=== PATIENT | female | born 1960 | race American Indian/Alaskan Native ===

== ENCOUNTER 2017-01-17 09:29 | Inpatient (IN) | payer OTHER ==
[2017-01-17 10:38] LABS: Anion Gap 18 mmol/L; Blood Urea Nitrogen 22 mg/dL (7-17); Carbon Dioxide 23 mmol/L (22-30); Chloride 101.5 mmol/L (98-107); Glucose 99 mg/dL (65-100); Potassium 4.3 mmol/L (3.6-5.0); Sodium 138 mmol/L (137-145)
[2017-01-17 10:45] LABS: Basophils % (Auto) 0.4 % (0.0-1.8); Eosinophils % (Auto) 2.4 % (0.0-4.3); Hematocrit 34.5 % (30.3-42.9); Hemoglobin 11.2 gm/dl (10.1-14.3); Mean Corpuscular HGB Conc 32 % (30-34); Mean Corpuscular Hemoglobin 28 pg (28-32); Mean Corpuscular Volume 87 fl (79-97); Platelet Count 297 K/mm3 (140-440); Red Blood Count 3.99 M/mm3 (3.65-5.03); Red Cell Distribution Width 14.6 % (13.2-15.2); White Blood Count 7.5 K/mm3 (4.5-11.0)
[2017-01-17] MEDS ORDERED: NACL 0.9% 1000 ML 1,000 ML IV ONE (22:11)
[2017-01-17] MEDS ORDERED: ZOFRAN IV ONE (22:11)
[2017-01-17] MEDS ORDERED: MORPHINE IV ONE (22:11)
[2017-01-17] MEDS ORDERED: PEPCID IV ONE (22:11)
[2017-01-17] MEDS ORDERED: ALUM-MAG HYDROX-SIMETH 200-200-20MG/5ML PO ONE (22:11)
--- NOTE | 2017-01-17 22:14 | Emergency Department Report ---
ED General Adult HPI - General Chief complaint: Chest Pain Stated complaint: RT SIDE CHEST PAIN Time Seen by Provider: 01/17/17 22:04 Source: patient, RN notes reviewed Mode of arrival: Wheelchair Limitations: No Limitations - History of Present Illness Initial comments: This is a 56-year-old female. She is previously unknown to me. Her primary care doctor is Dr. Adrian. Past medical history includes hypertension, obesity, prediabetes. The patient presents to the ER with right upper quadrant, epigastric, and substernal chest discomfort. It has been present for over 24 hours. The pain is described as burning in nature, radiates up to her throat. No shortness of breath, no vomiting. No leg pain. No leg swelling. No recent trips greater than 4 hours. No recent hospital admissions. The pain does not radiate to the back, arms or neck. No recent cardiac stress test. No cocaine use. No family history of cardiac disease that she is aware of. -: Gradual Location: chest, abdomen Severity scale (0 -10): 10 Quality: burning, aching Consistency: constant Improves with: rest Worsens with: movement Associated Symptoms: chest pain, loss of appetite - Related Data Home Medications Medication Instructions Recorded Confirmed Last Taken Aspirin [Aspirin BABY CHEW TAB] 81 mg PO QDAY 01/17/17 01/17/17 Unknown Atenolol [Tenormin] 25 mg PO DAILY 01/17/17 01/17/17 Unknown Gabapentin [Neurontin] 300 mg PO QHS 01/17/17 01/17/17 Unknown Hydroxyzine HCl 10 mg PO DAILY 01/17/17 01/17/17 Unknown Losartan [Cozaar] 100 mg PO QDAY 01/17/17 01/17/17 Unknown Pantoprazole [Protonix] 40 mg PO QDAY 01/17/17 01/17/17 Unknown Sertraline [Zoloft] 25 mg PO QDAY 01/17/17 01/17/17 Unknown amLODIPine [Norvasc] 10 mg PO DAILY 01/17/17 01/17/17 Unknown Allergies Allergy/AdvReac Type Severity Reaction Status Date / Time contrast dye Allergy Swelling Uncoded 01/17/17 09:44 ED Review of Systems ROS: Stated complaint: RT SIDE CHEST PAIN Other details as noted in HPI Constitutional: denies: diaphoresis Eyes: denies: vision change ENT: denies: epistaxis Respiratory: denies: cough Cardiovascular: chest pain Gastrointestinal: abdominal pain Genitourinary: denies: dysuria Musculoskeletal: denies: back pain Skin: denies: lesions Neurological: weakness. denies: headache Psychiatric: anxiety ED Past Medical Hx - Past Medical History Previous Medical History?: Yes Hx Hypertension: Yes Hx Diabetes: Yes (pre dm) Hx GERD: Yes - Surgical History Past Surgical History?: Yes Additional Surgical History: hysterectomy. x 2 - Social History Smoking Status: Never Smoker Substance Use Type: None - Medications Home Medications: Home Medications Medication Instructions Recorded Confirmed Last Taken Type Aspirin [Aspirin BABY CHEW TAB] 81 mg PO QDAY 01/17/17 01/17/17 Unknown History Atenolol [Tenormin] 25 mg PO DAILY 01/17/17 01/17/17 Unknown History Gabapentin [Neurontin] 300 mg PO QHS 01/17/17 01/17/17 Unknown History Hydroxyzine HCl 10 mg PO DAILY 01/17/17 01/17/17 Unknown History Losartan [Cozaar] 100 mg PO QDAY 01/17/17 01/17/17 Unknown History Pantoprazole [Protonix] 40 mg PO QDAY 01/17/17 01/17/17 Unknown History Sertraline [Zoloft] 25 mg PO QDAY 01/17/17 01/17/17 Unknown History amLODIPine [Norvasc] 10 mg PO DAILY 01/17/17 01/17/17 Unknown History ED Physical Exam - General Limitations: No Limitations General appearance: in distress, obese - Head Head exam: Present: atraumatic, normocephalic - Eye Eye exam: Present: normal appearance, EOMI. Absent: nystagmus - ENT ENT exam: Present: normal exam, normal orophraynx, mucous membranes moist, normal external ear exam - Neck Neck exam: Present: normal inspection, full ROM. Absent: tenderness, meningismus - Respiratory Respiratory exam: Present: normal lung sounds bilaterally, chest wall tenderness (there is reproducible chest wall tenderness. There is no breast tenderness. The breast exam is unremarkable. During the breast examination, I am escorted by ER nurse Avis Ann). Absent: respiratory distress, wheezes, rales, rhonchi, stridor - Cardiovascular Cardiovascular Exam: Present: regular rate, normal rhythm. Absent: systolic murmur, diastolic murmur, rubs, gallop - GI/Abdominal GI/Abdominal exam: Present: soft, tenderness, normal bowel sounds, other (there is epigastric and right upper quadrant tenderness. There is negative Dozier sign.). Absent: distended, guarding, rebound, rigid, pulsatile mass - Extremities Exam Extremities exam: Present: normal inspection, full ROM, normal capillary refill. Absent: tenderness, pedal edema, joint swelling, calf tenderness - Back Exam Back exam: Present: normal inspection, full ROM. Absent: tenderness, CVA tenderness (R), CVA tenderness (L), muscle spasm, paraspinal tenderness, vertebral tenderness - Neurological Exam Neurological exam: Present: alert, oriented X3, other (Extraocular movements intact. Tongue midline. No facial droop. Facial sensation intact to light touch in the V1, V2, V3 distribution bilaterally. 5 and 5 strength in 4 extremities.. Sensation is intact to light touch in 4 extremities.). Absent: motor sensory deficit - Psychiatric Psychiatric exam: Present: normal affect, normal mood - Skin Skin exam: Present: warm, dry, intact, normal color. Absent: rash ED Course Vital Signs 01/17/17 01/17/17 01/17/17 09:44 19:16 22:19 Temperature 97.5 F L 97.7 F 97.8 F Pulse Rate 56 L 69 61 Respiratory 18 18 20 Rate Blood Pressure 155/103 165/95 Blood Pressure 154/87 [Left] O2 Sat by Pulse 100 100 98 Oximetry 01/17/17 01/17/17 01/17/17 22:37 22:40 23:45 Temperature Pulse Rate Respiratory 20 20 20 Rate Blood Pressure Blood Pressure [Left] O2 Sat by Pulse 98 Oximetry 01/18/17 01/18/17 01:29 02:00 Temperature 98.0 F Pulse Rate 65 Respiratory 20 20 Rate Blood Pressure Blood Pressure 146/85 [Left] O2 Sat by Pulse 99 Oximetry - Reevaluation(s) Reevaluation #1: 01/17/17 22:33 Differential diagnosis: GERD, gastritis, costochondritis, biliary colic, reflux , pneumonia, acute coronary syndrome, pancreatitis assessment and plan: 56-year-old female with reproducible chest wall tenderness , epigastric and right upper quadrant tenderness. Costochondritis versus biliary disease most likely. Troponin is negative 3, EKG morphologically unremarkable, per patient's clinical history seems to be low risk by heart score. Patient will be treated symptomatically, x-ray of the chest is ordered, 1 quadrant ultrasound is ordered, additional laboratory studies are ordered. Pain has been present for over 24 hours. Multiple troponins have been negative. Reevaluation #2: 01/18/17 00:37 patient still having pain is buggy ladle tender in the right upper quadrant. Required multiple doses of narcotic pain medicine. Right upper quadrant ultrasound does not conclusively exclude cholecystitis, nonspecific findings noted, including small collection of sludge or noncalcified gallstones , with a minimally thickened gallbladder wall. Given persistent pain, tenderness, patient is admitted to Dr. Schaffer's service for further evaluation and management. ED Medical Decision Making - Lab Data Result diagrams: 01/19/17 07:14 01/19/17 07:14 Vital Signs 01/17/17 01/17/17 01/17/17 09:44 19:16 22:19 Temperature 97.5 F L 97.7 F 97.8 F Pulse Rate 56 L 69 61 Respiratory 18 18 20 Rate Blood Pressure 155/103 165/95 Blood Pressure 154/87 [Left] O2 Sat by Pulse 100 100 98 Oximetry Lab Results 01/17/17 01/17/17 01/17/17 Range/Units 10:03 10:03 13:00 WBC 7.5 (4.5-11.0) K/mm3 RBC 3.99 (3.65-5.03) M/mm3 Hgb 11.2 (10.1-14.3) gm/dl Hct 34.5 (30.3-42.9) % MCV 87 (79-97) fl MCH 28 (28-32) pg MCHC 32 (30-34) % RDW 14.6 (13.2-15.2) % Plt Count 297 (140-440) K/mm3 Lymph % (Auto) 20.3 (13.4-35.0) % [place] % (Auto) 8.5 H (0.0-7.3) % Eos % (Auto) 2.4 (0.0-4.3) % Baso % (Auto) 0.4 (0.0-1.8) % Lymph # 1.5 (1.2-5.4) K/mm3 [place] # 0.6 (0.0-0.8) K/mm3 Eos # 0.2 (0.0-0.4) K/mm3 Baso # 0.0 (0.0-0.1) K/mm3 Seg Neutrophils % 68.4 (40.0-70.0) % Seg Neutrophils # 5.1 (1.8-7.7) K/mm3 Sodium 138 (137-145) mmol/L Potassium 4.3 (3.6-5.0) mmol/L Chloride 101.5 (98-107) mmol/L Carbon Dioxide 23 (22-30) mmol/L Anion Gap 18 mmol/L BUN 22 H (7-17) mg/dL Creatinine 1.0 (0.7-1.2) mg/dL Estimated GFR > 60 ml/min BUN/Creatinine Ratio 22.00 % Glucose 99 (65-100) mg/dL Calcium 9.0 (8.4-10.2) mg/dL Troponin T < 0.010 < 0.010 (0.00-0.029) ng/mL 01/17/17 Range/Units 16:07 WBC (4.5-11.0) K/mm3 RBC (3.65-5.03) M/mm3 Hgb (10.1-14.3) gm/dl Hct (30.3-42.9) % MCV (79-97) fl MCH (28-32) pg MCHC (30-34) % RDW (13.2-15.2) % Plt Count (140-440) K/mm3 Lymph % (Auto) (13.4-35.0) % [place] % (Auto) (0.0-7.3) % Eos % (Auto) (0.0-4.3) % Baso % (Auto) (0.0-1.8) % Lymph # (1.2-5.4) K/mm3 [place] # (0.0-0.8) K/mm3 Eos # (0.0-0.4) K/mm3 Baso # (0.0-0.1) K/mm3 Seg Neutrophils % (40.0-70.0) % Seg Neutrophils # (1.8-7.7) K/mm3 Sodium (137-145) mmol/L Potassium (3.6-5.0) mmol/L Chloride (98-107) mmol/L Carbon Dioxide (22-30) mmol/L Anion Gap mmol/L BUN (7-17) mg/dL Creatinine (0.7-1.2) mg/dL Estimated GFR ml/min BUN/Creatinine Ratio % Glucose (65-100) mg/dL Calcium (8.4-10.2) mg/dL Troponin T < 0.010 (0.00-0.029) ng/mL - EKG Data -: EKG Interpreted by Me EKG shows normal: sinus rhythm, axis, intervals, QRS complexes Rate: normal - EKG Data When compared to previous EKG there are: previous EKG unavailable 01/17/17 23:02 EKG #2 demonstrates normal sinus, 63 bpm, normal intervals, normal axis, normal left consistent with STEMI. - Radiology Data Radiology results: image reviewed interpreted by me: X-ray of the chest is negative for acute disease. Critical care attestation.: If time is entered above; I have spent that time in minutes in the direct care of this critically ill patient, excluding procedure time. ED Disposition Clinical Impression: Abdominal pain Disposition: OP ADMITTED IP TO THIS HOSP Is pt being admited?: Yes Condition: Good
[2017-01-17 23:10] LABS: INR 1.04 (0.87-1.13)
--- NOTE | 2017-01-18 00:10 | Ultrasound Report ---
FINAL REPORT PROCEDURE: Right upper quadrant ultrasound TECHNIQUE: Real-time sonography was performed of the right upper quadrant with image documentation. CPT 33941 HISTORY: ruq pain COMPARISON: No prior studies are available for comparison. FINDINGS: Small mildly echogenic foci seen within the gallbladder.. This may represent a small collection a sludge or noncalcified gallstone. Gallbladder wall mildly prominent measuring up to 3.6 millimeters. Gallbladder wall otherwise unremarkable. No fluid is seen in the gallbladder fossa. Liver echogenicity mildly increased suggesting fatty infiltration. No discrete liver masses are identified. The pancreas is poorly visualized due to bowel gas although appears mildly echogenic. The appearance suggest fatty infiltration or atrophy. The right kidney showed no focal abnormality. IMPRESSION: Small collection of sludge or possibly noncalcified gallstone in the gallbladder. Gallbladder wall minimally thickened. No fluid is seen in the gallbladder fossa. If clinically indicated nuclear medicine HIDA scan could be performed for further evaluation. Mild fatty infiltration of the liver suspected. There also appears to be fatty infiltration or atrophy of the pancreas. The entire pancreas is not visualized.
[2017-01-18 00:25] LABS: Alanine Aminotransferase 33 units/L (7-56); Albumin 3.8 g/dL (3.9-5); Albumin/Globulin Ratio 0.9 %; Alkaline Phosphatase 80 units/L (35-129); Bilirubin,Direct < 0.2 mg/dL (0-0.2); Bilirubin,Indirect 0.1 mg/dL; Bilirubin,Total 0.3 mg/dL (0.1-1.2); Lipase 24 units/L (13-60); Total Protein 8.1 g/dL (6.3-8.2)
[2017-01-18] MEDS ORDERED: MORPHINE IV ONE (00:31)
[2017-01-18] MEDS ORDERED: ZOSYN/NS 4.5GM/100ML 4.5 GM/100 ML VIAL IV ONE (00:31)
[2017-01-18] MEDS ORDERED: DILAUDID IV ONE (00:37)
[2017-01-18] MEDS ORDERED: MILK OF MAGNESIA PO PRN (01:44)
[2017-01-18] MEDS ORDERED: TYLENOL PO PRN (01:44)
[2017-01-18] MEDS ORDERED: DULCOLAX PR PRN (01:44)
--- NOTE | 2017-01-18 01:44 | History and Physical Report ---
History of Present Illness Date of examination: 01/18/17 History of present illness: 56-year-old woman with a history of hypertension, diabetes, GERD comes to the emergency room with complaints of right upper quadrant pain that started yesterday. The pain she describes a pressure-like sensation, intermittent in nature lasting for 1 minute, intensity 8/10, radiating to the epigastric area. Admits to nausea vomiting, no shortness of breath, palpitation or diaphoresis Patient denies chest pain, palpitation, shortness of breath, cough, hematochezia, dysuria, frequency, focal weakness, dysarthria, fever chills, polydipsia polyuria, hot or cold intolerance, easy bruisability, or rash or bleeding from mucosal membrane, rhinorrhea, epistaxis, earache, tinnitus, blurry vision, eye discharge, anxiety, depression. Other review of systems negative PAST SURGICAL HISTORY: Hysterectomy, times SOCIAL HISTORY: Denies alcohol, tobacco, drugs FAMILY HISTORY: Hypertension Medications and Allergies Allergies Allergy/AdvReac Type Severity Reaction Status Date / Time contrast dye Allergy Swelling Uncoded 01/17/17 09:44 Home Medications Medication Instructions Recorded Confirmed Last Taken Type Aspirin [Aspirin BABY CHEW TAB] 81 mg PO QDAY 01/17/17 01/17/17 Unknown History Atenolol [Tenormin] 25 mg PO DAILY 01/17/17 01/17/17 Unknown History Gabapentin [Neurontin] 300 mg PO QHS 01/17/17 01/17/17 Unknown History Hydroxyzine HCl 10 mg PO DAILY 01/17/17 01/17/17 Unknown History Losartan [Cozaar] 100 mg PO QDAY 01/17/17 01/17/17 Unknown History Pantoprazole [Protonix] 40 mg PO QDAY 01/17/17 01/17/17 Unknown History Sertraline [Zoloft] 25 mg PO QDAY 01/17/17 01/17/17 Unknown History amLODIPine [Norvasc] 10 mg PO DAILY 01/17/17 01/17/17 Unknown History Exam - Physical Exam Narrative exam: Gen. appearance: Patient lying in bed, no apparent distress HEENT: Normocephalic, atraumatic, pupils equally round and reactive to light, extraocular movement intact, and no sclericterus,. No JVD or thyromegaly or nodule,neck supple, no carotid bruit ,mucous membranes moist, no exudate or erythema Heart: S1, S2, regular rate and rhythm Lungs: Clear to auscultation bilaterally, breathing comfortable Abdomen: Positive bowel sounds, tender in the right upper quadrant, epigastric, nondistended, no organomegaly Extremity: No edema, cyanosis, clubbing Skin: No rash, nodules, warm, dry Neuro: Oriented 3, cranial nerves II-12 intact, speech is fluent, motor and sensory intact - Constitutional Vitals: Temp Pulse Resp BP Pulse Ox 97.8 F 61 20 154/87 98 01/17/17 22:19 01/17/17 22:19 01/18/17 01:29 01/17/17 22:19 01/17/17 22:40 Results - Labs CBC & Chem 7: 01/17/17 10:03 01/17/17 10:03 Labs: Abnormal lab results 01/17/17 01/17/17 01/17/17 Range/Units 10:03 10:03 16:07 [place] % (Auto) 8.5 H (0.0-7.3) % BUN 22 H (7-17) mg/dL Albumin 3.8 L (3.9-5) g/dL - Imaging and Cardiology US - abdomen: report reviewed Assessment and Plan Abdominal pain, rule out acute cholecystitis Hypertension Diabetes GERD Admit to medicine Placed on bowel rest, start IV fluid, IV morphine, HIDA scan Consult surgery Check fingersticks initiate insulin sliding scale Start DVT prophylaxis
[2017-01-18] MEDS ORDERED: D50W (25GM) IV PRN (02:20)
[2017-01-18] MEDS ORDERED: APRESOLINE IV PRN (02:21)
--- NOTE | 2017-01-18 03:21 | Admit Criteria Form ---
Admission Criteria Documentation: ABDOMINAL PAIN Clinical Indications for Admission to Inpatient Care (Place 'X' for any and all applicable criteria): Admission is indicated for ANY ONE of the following(1)(2)(3)(4)(5): [ X]I. Inpatient admission required rather than observation care (Also use Abdominal Pain: Observation Care, as appropriate) because of ANY ONE of the following: [ ]a) Severe pain requiring acute inpatient management [X ]b) Identification of etiology/finding that requires inpatient care (eg, aortic dissection, free air) [ ]c) Absent bowel sounds with complete ileus(6) [ ]d) Suspected toxic megacolon [ ]e) Severe electrolyte abnormalities requiring inpatient care [ ]f) High fever or infection requiring inpatient admission as indicated by ANY ONE of following(7)(8): [ ] i) Appropriate outpatient or observational care antimicrobial treatment unavailable, not effective, or not feasible [ ] ii) Documented bacteremia [ ] iii) Temperature > 104.9 degrees F (oral) [ ] iv) T >103.1 F (oral) or < 96.8 F(rectal) that does not respond to all emergency treatment measures [ ]g) Signs of intestinal obstruction [B] [ ]h) Hemodynamic instability [ ]i) IV fluid to replace significant ongoing losses (greater than 3 L/m2 per day) (12)(13) [ ]j) Percutaneous or open drainage (eg, abscess, biliary tract ) procedures [ ]k) Parenteral nutrition regimen that must be implemented on inpatient basis [X ]l) Other condition,treatment or monitoring requiring inpatient admission. [ ]II. Peritoneal signs present [ ]III. Surgery needed that cannot be performed on an ambulatory basis. [ ]IV. Evaluation requires patient to not eat or drink for extended period ( eg, more than 24 hours). [ ]V. Contraindications and/or Inappropriate clinical situations for Observational Care in patients with abdominal pain, when ANY ONE of the following is required: [ ]a) Thorough evaluation is required to prevent catastrophic events due to delays in diagnosing (e.g.Mesenteric ischemia) 1,3 [ ]b) Patient with severe pathology or with chronic symptoms unlikely to improve in the ED stay (3) [ ]. General contraindications and/or Inappropriate clinical situations for Observational Care in patients with abdominal pain, when ANY ONE of the following is required: [ ]a) Prediction of prolongation of LOS based on ANY ONE of the following may be considered as a contraindication for observational care 2, 3, 4, 5, 6, 7, 8, 9, 10, 11 [ ]i) Age > 65 yrs. [ ]ii) Patient arriving by ambulance [ ]iii) Patient with high acuity [ ]iv) Patient requiring vital sign monitoring [ ]v) Patient on IV medication [ ]b) Systolic blood pressures 180mmHg 3,12 [ ]c) Patient with altered mental status including delirium and other alteration of consciousness, (3) [ ]d) Patient whose discharge disposition will be to a [place] [facility] home or rehabilitation home should not be managed in Emergency Department Observation Unit. CMS rule requires 3 days hospital stay before such placement.3,13 [ ]e) Patient with failure to thrive due to broad array of etiologies 3,16,17 [ ]f) Inability to ambulate 3,14 Extended stay beyond goal length of stay may be needed for(2)(3): [ ]a) Persistent abdominal pain with suspected intra-abdominal process [ ]b) Diagnosed condition requiring continued stay (e.g., pancreatitis, complicated diverticulitis) [ ]c) Surgery (e.g., colectomy) The original [facility] content created by [employer] has been revised. The portions of the content which have been revised are identified through the use of italic text or in bold, and [facility] has neither reviewed nor approved the modified material.All other unmodified content is copyright [facility]. Please see references footnoted in the original [facility] edition 2016 Admission Criteria Met: Yes
[2017-01-18] MEDS: ZOFRAN IV PRN (05:29)
[2017-01-18] MEDS: NACL 0.45% 1000 ML 1,000 ML IV SCH ×2 (05:30→22:00)
[2017-01-18 08:17] LABS: Creatine Kinase MB 1.9 ng/mL (0.0-4.0)
[2017-01-18 08:27] LABS: Creatine Kinase 150 units/L (30-135)
[2017-01-18] MEDS: NOVOLOG SUB-Q SCH ×4 (08:27→21:33)
--- NOTE | 2017-01-18 09:13 | XRay Report ---
AP CHEST : 01/17/17 09:29:00 CLINICAL: Chest pain. COMPARISON:01/15/16 FINDINGS: Normal heart and pulmonary vessels. The lungs are clear. The bones and soft tissues are unremarkable. IMPRESSION: Normal chest.
[2017-01-18] MEDS ORDERED: LOVENOX SUB-Q SCH (10:00)
--- NOTE | 2017-01-18 11:41 | Nuclear Medicine Report ---
HEPATOBILIARY SCAN: History: Right upper quadrant pain. Comparison: Ultrasound right upper quadrant performed 01/17/17. Following the injection of the radionuclide, serial scanning was obtained over the right upper quadrant. Initial imaging of the liver demonstrates a relatively normal activity pattern. Progressive concentration of the radionuclide in the bile ducts, with filling of both the gallbladder and small bowel, is identified within a normal time period. IMPRESSION: Unremarkable biliary system. No evidence for acute cholecystitis.
[2017-01-18] MEDS: MORPHINE IV PRN ×3 (12:28→22:02)
[2017-01-18] MEDS: LOVENOX SUB-Q SCH (12:29)
--- NOTE | 2017-01-18 16:17 | Ultrasound Report ---
Limited abdominal ultrasound: The liver evaluation is compromised but appears grossly normal. The gallbladder appears well distended and there appears to be sludge layering along the posterior wall. No calculus identified. The gallbladder santos are not thickened. The CBD diameter is 3.5 mm. The pancreas is obscured. The right renal length is 12.1 cm and the kidney is generally echogenically unremarkable. The transverse diameter of the abdominal aorta is 2 cm. Impressions: Gallbladder sludge. No inflammation identified. Nonvisualized pancreas.
--- NOTE | 2017-01-18 23:07 | Consultation ---
HISTORY OF PRESENT ILLNESS: This patient was seen last night in the Emergency Room, she was readmitted by Dr. Jain. She came because of pain that she has been developing over the last several days in the right upper quadrant was radiating to the back with nausea, but no vomiting. She gives a history of hypertension and diabetes. She gives also history of GERD. The patient told me that she had these aches and pain over the last 3 years on and off, but was not as severe as this time. She was evaluated by our hospitalist and then she was admitted for definitive? surgical treatment in terms of cholecystectomy. She denied any palpitation, shortness of breath. She had no problem with her bowel movements. ALLERGIC REACTIONS WERE MAINLY TO CONTRAST DYE. PHYSICAL EXAMINATION: GENERAL: At this point showed well preserved moderately obese black female. Her BMI is 47. HEAD AND NECK: Essentially negative. BREASTS: Symmetric. No evidence of specific masses. CHEST: Clear. HEART: Sound normal. ABDOMEN: Protuberant, soft, and benign. Very minimal tenderness in the mid epigastrium. EXTREMITIES: Showed no evidence of any edema. IMPRESSION AND PLAN: Epigastric pain, nausea on and off over the last 3 years with questionable gallbladder disease. She had a sonogram that showed sludge in the gallbladder. The HIDA scan was discussed with our radiologist, William to essentially nonrevealing. I discussed the case again with him, he said that there is suspicion of one stone stuck in the cystic duct area, going to repeat that ultrasound, then we will go from there. ADMISSION DIAGNOSES: Epigastric pain, nausea and vomiting with? gallbladder disease , status post post-hysterectomy and sections x2, exogenous obesity. We are going to pursue that with repeat sonogram and then go from there. I did indicate to her that we will wait on the result. If it is positive, then we may consider doing that. JOB# [id number] SATINDER/SAKINA
[2017-01-19] MEDS: NOVOLOG SUB-Q SCH ×4 (08:00→22:15)
[2017-01-19 08:13] LABS: Basophils % (Auto) 0.3 % (0.0-1.8); Eosinophils % (Auto) 4.8 % (0.0-4.3); Hemoglobin 10.7 gm/dl (10.1-14.3); Mean Corpuscular HGB Conc 32 % (30-34); Mean Corpuscular Hemoglobin 28 pg (28-32); Mean Corpuscular Volume 86 fl (79-97); Platelet Count 283 K/mm3 (140-440); Red Blood Count 3.85 M/mm3 (3.65-5.03); Red Cell Distribution Width 14.1 % (13.2-15.2); White Blood Count 4.8 K/mm3 (4.5-11.0)
[2017-01-19 08:39] LABS: Alanine Aminotransferase 23 units/L (7-56); Albumin 3.4 g/dL (3.9-5); Albumin/Globulin Ratio 0.9 %; Alkaline Phosphatase 70 units/L (35-129); Anion Gap 17 mmol/L; BUN/Creatinine Ratio 13.33; Bilirubin,Total 0.4 mg/dL (0.1-1.2); Blood Urea Nitrogen 12 mg/dL (7-17); Calcium 8.6 mg/dL (8.4-10.2); Carbon Dioxide 24 mmol/L (22-30); Chloride 102.4 mmol/L (98-107); Glucose 96 mg/dL (65-100); Potassium 3.9 mmol/L (3.6-5.0); Sodium 139 mmol/L (137-145)
[2017-01-19] MEDS: NACL 0.45% 1000 ML 1,000 ML IV SCH ×2 (11:28→22:51)
[2017-01-19] MEDS: LOVENOX SUB-Q SCH (11:29)
[2017-01-19] MEDS: MORPHINE IV PRN ×3 (11:29→22:53)
--- NOTE | 2017-01-19 12:09 | Progress Note ---
Subjective Narrative: still C/O Rt flankn pain , a little nauseated , will obtain MRCP , talked to Pt and MOM , Objective Vital Signs - 12hr 01/19/17 01/19/17 01/19/17 01:14 05:36 08:00 Temperature 98.4 F 98.3 F 98.8 F Pulse Rate Pulse Rate [ 80 62 From Monitor] Pulse Rate [ 69 Left] Respiratory 95 H 20 18 Rate Blood Pressure 104/59 121/67 132/78 [Left Arm] O2 Sat by Pulse 95 95 97 Oximetry 01/19/17 11:35 Temperature Pulse Rate 76 Pulse Rate [ From Monitor] Pulse Rate [ Left] Respiratory Rate Blood Pressure [Left Arm] O2 Sat by Pulse Oximetry - Labs 01/19/17 07:14 01/19/17 07:14 Diabetes panel 01/19/17 Range/Units 07:14 Sodium 139 (137-145) mmol/L Potassium 3.9 (3.6-5.0) mmol/L Chloride 102.4 (98-107) mmol/L Carbon Dioxide 24 (22-30) mmol/L BUN 12 (7-17) mg/dL Creatinine 0.9 (0.7-1.2) mg/dL Glucose 96 (65-100) mg/dL Calcium 8.6 (8.4-10.2) mg/dL AST 18 (5-40) units/L ALT 23 (7-56) units/L Alkaline Phosphatase 70 (35-129) units/L Total Protein 7.0 (6.3-8.2) g/dL Albumin 3.4 L (3.9-5) g/dL Calcium panel 01/19/17 Range/Units 07:14 Calcium 8.6 (8.4-10.2) mg/dL Albumin 3.4 L (3.9-5) g/dL Pituitary panel 01/19/17 Range/Units 07:14 Sodium 139 (137-145) mmol/L Potassium 3.9 (3.6-5.0) mmol/L Chloride 102.4 (98-107) mmol/L Carbon Dioxide 24 (22-30) mmol/L BUN 12 (7-17) mg/dL Creatinine 0.9 (0.7-1.2) mg/dL Glucose 96 (65-100) mg/dL Calcium 8.6 (8.4-10.2) mg/dL Adrenal panel 01/19/17 Range/Units 07:14 Sodium 139 (137-145) mmol/L Potassium 3.9 (3.6-5.0) mmol/L Chloride 102.4 (98-107) mmol/L Carbon Dioxide 24 (22-30) mmol/L BUN 12 (7-17) mg/dL Creatinine 0.9 (0.7-1.2) mg/dL Glucose 96 (65-100) mg/dL Calcium 8.6 (8.4-10.2) mg/dL Total Bilirubin 0.4 (0.1-1.2) mg/dL AST 18 (5-40) units/L ALT 23 (7-56) units/L Alkaline Phosphatase 70 (35-129) units/L Total Protein 7.0 (6.3-8.2) g/dL Albumin 3.4 L (3.9-5) g/dL
--- NOTE | 2017-01-19 16:45 | Magnetic Resonance Report ---
MRI of the abdomen without contrast and MRCP. Procedure: A multiplanar multisequence study was performed without contrast. MRCP was performed using a water sensitive sequence. Motion artifact compromises quality on certain sequences. Findings: A very small right pleural effusion is noted. The liver and spleen appear normal. The pancreas is normal in size and configuration with no evidence of inflammation or mass. Tiny bilateral renal cysts are noted. The kidneys are otherwise unremarkable. No retroperitoneal mass or abnormal fluid collection is seen. MRCP demonstrates a normal biliary tree with common bile duct measuring 4 mm in maximum diameter. The pancreatic duct appears normal. Impression: 1. Normal MRCP. 2. Tiny bilateral renal cysts. 3. Trace right pleural effusion.
--- NOTE | 2017-01-19 17:22 | Progress Note ---
Assessment and Plan Assessment and plan: Abdominal pain, admitted due to cholangitis Hypertension Diabetes mellitus type II History of GERD Plan: Dyspnea nothing by mouth, IV fluid, IV morphine, HIDA scan showed positive biliary sludge Consulted surgery and recommended MRCP Check fingersticks and continue insulin sliding scale Start DVT prophylaxis History Interval history: Patient seen and examined. Medical records and medication list reviewed. No acute event overnight noted by the RN. Patient treated complain of abdominal pain Discussed plan of care at bedside with patient and her family. Hospitalist Physical - Physical exam Narrative exam: GENERAL: Obese -[place] female lying on bed appeared to be in mild discomfort. HEENT: Normocephalic. Atraumatic. No conjunctival congestion or icterus. Patient has moist mucous membranes. NECK: Supple. Trachea midline. CHEST/LUNGS: Clear to auscultated bilaterally, breathing nonlabored. No wheezes crackles or rhonchi. HEART/CARDIOVASCULAR: Regular in rate and rhythm. S1 and S2 positive. ABDOMEN: Abdomen is soft, diffuse epigastric tenderness. Patient has normal bowel sounds. SKIN: There is no rash. Warm and dry. NEURO: No focal motor deficit. Follows command. MUSCULOSKELETAL: No joint effusion or tenderness. EXTRIMITY: No edema, no cyanosis or clubbing. PSYCH: Cooperative. - Constitutional Vitals: Temp Pulse Resp BP Pulse Ox 98.9 F 87 18 146/67 88 01/19/17 17:13 01/19/17 17:13 01/19/17 17:13 01/19/17 17:13 01/19/17 17:13 Results - Labs CBC & Chem 7: 01/19/17 07:14 01/19/17 07:14 Labs: Laboratory Last Values WBC 4.8 K/mm3 (4.5-11.0) 01/19/17 07:14 RBC 3.85 M/mm3 (3.65-5.03) 01/19/17 07:14 Hgb 10.7 gm/dl (10.1-14.3) 01/19/17 07:14 Hct 33.0 % (30.3-42.9) 01/19/17 07:14 MCV 86 fl (79-97) 01/19/17 07:14 MCH 28 pg (28-32) 01/19/17 07:14 MCHC 32 % (30-34) 01/19/17 07:14 RDW 14.1 % (13.2-15.2) 01/19/17 07:14 Plt Count 283 K/mm3 (140-440) 01/19/17 07:14 Lymph % (Auto) 37.3 % (13.4-35.0) H 01/19/17 07:14 [place] % (Auto) 9.2 % (0.0-7.3) H 01/19/17 07:14 Eos % (Auto) 4.8 % (0.0-4.3) H 01/19/17 07:14 Baso % (Auto) 0.3 % (0.0-1.8) 01/19/17 07:14 Lymph # 1.8 K/mm3 (1.2-5.4) 01/19/17 07:14 [place] # 0.4 K/mm3 (0.0-0.8) 01/19/17 07:14 Eos # 0.2 K/mm3 (0.0-0.4) 01/19/17 07:14 Baso # 0.0 K/mm3 (0.0-0.1) 01/19/17 07:14 Seg Neutrophils % 48.4 % (40.0-70.0) 01/19/17 07:14 Seg Neutrophils # 2.3 K/mm3 (1.8-7.7) 01/19/17 07:14 PT 13.5 Sec. (12.2-14.9) 01/17/17 22:23 INR 1.04 (0.87-1.13) 01/17/17 22:23 Sodium 139 mmol/L (137-145) 01/19/17 07:14 Potassium 3.9 mmol/L (3.6-5.0) 01/19/17 07:14 Chloride 102.4 mmol/L (98-107) 01/19/17 07:14 Carbon Dioxide 24 mmol/L (22-30) 01/19/17 07:14 Anion Gap 17 mmol/L 01/19/17 07:14 BUN 12 mg/dL (7-17) 01/19/17 07:14 Creatinine 0.9 mg/dL (0.7-1.2) 01/19/17 07:14 Estimated GFR > 60 ml/min 01/19/17 07:14 BUN/Creatinine Ratio 13.33 % 01/19/17 07:14 Glucose 96 mg/dL (65-100) 01/19/17 07:14 POC Glucose 100 (70-105) 01/18/17 21:27 Calcium 8.6 mg/dL (8.4-10.2) 01/19/17 07:14 Total Bilirubin 0.4 mg/dL (0.1-1.2) 01/19/17 07:14 Direct Bilirubin < 0.2 mg/dL (0-0.2) 01/17/17 16:07 Indirect Bilirubin 0.1 mg/dL 01/17/17 16:07 AST 18 units/L (5-40) 01/19/17 07:14 ALT 23 units/L (7-56) 01/19/17 07:14 Alkaline Phosphatase 70 units/L (35-129) 01/19/17 07:14 Total Creatine Kinase 150 units/L (30-135) H 01/18/17 07:22 CK-MB (CK-2) 1.9 ng/mL (0.0-4.0) 01/18/17 07:22 CK-MB (CK-2) Rel Index 1.2 (0-4) 01/18/17 07:22 Troponin T < 0.010 ng/mL (0.00-0.029) 01/18/17 07:22 Total Protein 7.0 g/dL (6.3-8.2) 01/19/17 07:14 Albumin 3.4 g/dL (3.9-5) L 01/19/17 07:14 Albumin/Globulin Ratio 0.9 % 01/19/17 07:14 Lipase 24 units/L (13-60) 01/17/17 16:07 - Imaging and Cardiology CT scan - abdomen: report reviewed
--- NOTE | 2017-01-19 17:27 | Event Note ---
Date: 01/19/17 Dr. Cuello thank you for asking us to participate in the care of this patient. This 56 year old female with history of hypertension and Gerd admitted with right upper quadrant pain. Patient denies shortness of breath,cough or chest pain. Patient denies increase of pain with inspiration.Patient has some nausea and vomiting. Patient has no history of smoking, alcohol or drug abuse. Patient is . She has 2 children. Works as cleaning houses. Denies allergies to the medications.Patient has history of sleep apnea. She uses CPAP at home. Patient diagnosed with sludge in Gallbladder. Patients surgical history Hysterectomy and C section. Gen. appearance: Patient lying in bed, no apparent distress HEENT: Normocephalic, atraumatic, pupils equally round and reactive to light, extraocular movement intact. NECK: Short, supple, No JVD. Heart: S1, S2, regular rate and rhythm Lungs: Clear to auscultation bilaterally, breathing comfortable Abdomen: Positive bowel sounds, tender in the right upper quadrant, epigastric, nondistended, no organomegaly Extremity: No edema, cyanosis, clubbing Skin: No rash, nodules, warm, dry Neuro: Oriented 3, cranial nerves II-12 intact, speech is fluent, motor and sensory intact LAB Results: CBC: WBC 4.8, HGB 10.7, HCT 37, Platelets 383,000. CMP: NA+ 139, K+ 3.9,BUN 12, Creatinine .9.glucose 100 PT 13.5, INR 1.04. CPK 150, CK MB 19, CKMB Index 1.2.Trponin .01. Chest xray reported normal. MRI of abdomen with out contrast, MRCP reported tiny right pleural effusion. IMMPRESSION; 1. MORBID OBESITY 2. SLEEP APNEA. 3. RIGHT UPPER QUADRANT PAIN 4. HYPERTNSION 5. GERD. 6. TINEY RIGHT PLEURAL EFFUSION. 7. DIABETES. PLAN: 1. ABGS ON ROOM AIR. 2. INCENTIVE SPIROMETRY 3. BEDSIDE PULMONARY FUNCTION TEST. 4. DVT PROPHYLAXIS POST SURGERY. 5. BIPAP POST EXTUBATION. 6. BIPAP OR CPAP DURING THE NIGHT TIME. 7. PROTONIX 40 MG PO QD. PATIENT WITH MORBID OBESITY, SLEEP APNEA,HYPERTENSION,GERD EXPLAINED THE RISKS OF SURGERY AND ANESTHESIA. EXPLAININED RISKS OF RESPIRATORY FAILURE, CARDIAC ARRYTHMIA AND CARDIOPULMONARY ARREST ECTC.AFTER EXPLAING THE RISKS AND ABOVE PRECAUTIONS TO BE TAKEN, PATIENT CLEARING FOR SURGERY FROM PULMONARY POINT OF VIEW.
[2017-01-19 22:37] LABS: ISTAT Base Excess 1; ISTAT DEVICE 0; ISTAT HCO3 23.8; ISTAT PCO2 31.1 (35-45); ISTAT PH 7.492 (7.35-7.45); ISTAT PO2 81 (80-105); ISTAT SO2 97; ISTAT TCO2 25
--- NOTE | 2017-01-20 07:49 | XRay Report ---
Single view chest: Compared to 01/17/17. History: Shortness of breath. Findings: Borderline cardiomegaly. Trachea is midline. No consolidation, pneumothorax or pleural effusion. Impression: No acute cardiopulmonary findings.
[2017-01-20] MEDS: NOVOLOG SUB-Q SCH ×2 (08:46→19:25)
[2017-01-20] MEDS: NACL 0.45% 1000 ML 1,000 ML IV SCH (09:11)
--- NOTE | 2017-01-20 11:24 | Progress Note ---
Assessment and Plan - Patient Problems (1) KATERIN (obstructive sleep apnea) Current Visit: Yes Status: Acute Plan to address problem: - continue qhs NIV - weight loss counselled - avoid oversedation (2) Obesity Current Visit: Yes Status: Acute Qualifiers: Obesity type: O Obesity severity: O Plan to address problem: - as above - aspiration precautions - incentive spirometry (3) Hypoxemia Current Visit: Yes Status: Acute Plan to address problem: - continue ICS to prevent further derecruitment of alveolii - supplemental oxygen to keep O2 sats > 92% Subjective Date of service: 01/20/17 Principal diagnosis: Pre-op Pulmonary Clearance; KATERIN; Obesity Interval history: Seen and examined at bedside; 24 hour events reviewed; nursing and respiratory care staff consulted; no adverse overnight events reported to me; resting in bed post-op; denies acute chest pains or increased SOB; no N/V/F/C Objective Vital Signs - 12hr 01/19/17 01/20/17 01/20/17 23:35 00:59 01:02 Temperature 97.8 F 97.8 F Pulse Rate 58 L Pulse Rate [ 81 81 Left Radial] Pulse Rate [ Right Radial] Respiratory 20 20 Rate Blood Pressure 140/81 140/81 [Left Arm] O2 Sat by Pulse 98 98 Oximetry 01/20/17 01/20/17 05:00 08:00 Temperature 97.6 F 97.6 F Pulse Rate Pulse Rate [ Left Radial] Pulse Rate [ 72 68 Right Radial] Respiratory 20 20 Rate Blood Pressure 104/55 137/76 [Left Arm] O2 Sat by Pulse 96 97 Oximetry Constitutional: alert, appears uncomfortable Eyes: non-icteric ENT: oropharynx moist Neck: supple, no lymphadenopathy Effort: mildly labored Ascultation: Bilateral: clear, diminished breath sounds (bases) Cardiovascular: regular rate and rhythm Gastrointestinal: normoactive bowel sounds, soft, tender, non-distended Integumentary: normal Extremities: no cyanosis, no edema, pulses normal, no ischemia or petechiae Neurologic: normal mental status, non-focal exam, pupils equal and round, motor strength normal and Psychiatric: mood appropriate, affect normal CBC and BMP: 01/19/17 07:14 01/19/17 07:14 ABG, PT/INR, D-dimer: ABG POC ABG pH 7.492 (7.35-7.45) H 01/19/17 21:48 POC ABG pCO2 31.1 (35-45) L 01/19/17 21:48 POC ABG pO2 81 (80-105) 01/19/17 21:48 POC ABG HCO3 23.8 01/19/17 21:48 POC ABG Total CO2 25 01/19/17 21:48 POC ABG O2 Sat 97 01/19/17 21:48 PT/INR, D-dimer PT 13.5 Sec. (12.2-14.9) 01/17/17 22:23 INR 1.04 (0.87-1.13) 01/17/17 22:23 Abnormal lab findings: Abnormal Labs 01/18/17 01/19/17 01/19/17 07:22 07:14 07:14 Lymph % (Auto) 37.3 H [place] % (Auto) 9.2 H Eos % (Auto) 4.8 H POC ABG pH POC ABG pCO2 Total Creatine Kinase 150 H Albumin 3.4 L 01/19/17 21:48 Lymph % (Auto) [place] % (Auto) Eos % (Auto) POC ABG pH 7.492 H POC ABG pCO2 31.1 L Total Creatine Kinase Albumin
[2017-01-20] MEDS ORDERED: NACL 0.9% 1000 ML 1,000 ML IV SCH (13:00)
[2017-01-20] MEDS ORDERED: PEPCID PO NR (13:00)
[2017-01-20] MEDS ORDERED: REGLAN PO NR (13:00)
[2017-01-20] MEDS ORDERED: VERSED IV NR (13:00)
--- NOTE | 2017-01-20 13:46 | Anesthesia Consultation ---
Anesthesia Consult and Med Hx Date of service: 01/20/17 - Airway Anesthetic Teeth Evaluation: Good, Caps (top front gold) ROM Head & Neck: Adequate Mental/Hyoid Distance: Adequate Mallampati Class: Class II Intubation Access Assessment: Probably Good - Pulmonary Exam CTA: Yes - Cardiac Exam Cardiac Exam: RRR - Pre-Operative Health Status ASA Pre-Surgery Classification: ASA3 Proposed Anesthetic Plan: General - Pulmonary Hx Smoking: No Hx Asthma: No COPD: No Hx Pneumonia: No Hx Sleep Apnea: Yes (+cpap) - Cardiovascular System Hx Hypertension: Yes Hx Cardia Arrhythmia: Yes ("slow heart rate") - Central Nervous System Hx Seizures: No CVA: No - Endocrine Hx Renal Disease: No Hx End Stage Renal Disease: No Hx Non-Insulin Dependent Diabetes: Yes (diet controlled) Hx Thyroid Disease: No - Other Systems Hx Obesity: Yes (BMI > 40)
[2017-01-20] MEDS ORDERED: SUBLIMAZE ONE (13:48)
[2017-01-20] MEDS ORDERED: DIPRIVAN 10 MG/ML IV ONE (13:48)
--- NOTE | 2017-01-20 13:48 | Anesthesia Day of Surgery ---
Anesthesia Day of Surgery - Day of Surgery Patient Examined: Yes Patient H&P Reviewed: Yes Patient is NPO: Yes
[2017-01-20] MEDS ORDERED: XYLOCAINE MPF 2% ONE (13:49)
[2017-01-20] MEDS ORDERED: ZEMURON IV ONE (13:50)
[2017-01-20] MEDS ORDERED: ZOFRAN IV PRN (13:51)
[2017-01-20] MEDS ORDERED: D50W (25GM) IV ONE (13:54)
[2017-01-20] MEDS ORDERED: NEOSTIGMINE ONE (14:00)
[2017-01-20] MEDS ORDERED: ROBINUL ONE ×2 (14:00)
[2017-01-20] MEDS ORDERED: DECADRON ONE ×2 (14:01→15:30)
[2017-01-20] MEDS ORDERED: DILAUDID ONE (14:12)
[2017-01-20] MEDS ORDERED: ANCEF/STERILE WATER 2 GM/20 ML IV NR (14:22)
--- NOTE | 2017-01-20 15:37 | Progress Note ---
Assessment and Plan Assessment and plan: Cholecystitis due to biliary sludge Hypertension Diabetes mellitus type II History of GERD History of COPD not on any exacerbation Plan: nothing by mouth, IV fluid, IV morphine, HIDA scan showed positive biliary sludge Status post open cholecystectomy today Check fingersticks and continue insulin sliding scale Nebulizer breathing treatment as needed Continue DVT prophylaxis History Interval history: Patient seen and examined. Medical records and medication list reviewed. No acute event overnight noted by the RN. s/p cholecystectomy today Discussed plan of care at bedside with patient and her family. Hospitalist Physical - Physical exam Narrative exam: GENERAL: Obese -Citizen Of [place] female lying on bed appeared to be in mild discomfort. HEENT: Normocephalic. Atraumatic. No conjunctival congestion or icterus. Patient has moist mucous membranes. NECK: Supple. Trachea midline. CHEST/LUNGS: Clear to auscultated bilaterally, breathing nonlabored. No wheezes crackles or rhonchi. HEART/CARDIOVASCULAR: Regular in rate and rhythm. S1 and S2 positive. ABDOMEN: Abdomen is soft, mild diffuse tenderness. Surgical sutures in place. SKIN: There is no rash. Warm and dry. NEURO: No focal motor deficit. Follows command. MUSCULOSKELETAL: No joint effusion or tenderness. EXTRIMITY: No edema, no cyanosis or clubbing. PSYCH: Cooperative. - Constitutional Vitals: Temp Pulse Resp BP Pulse Ox 98.7 F 68 22 142/89 97 01/20/17 14:43 01/20/17 14:43 01/20/17 14:43 01/20/17 14:43 01/20/17 14:43 Results - Labs CBC & Chem 7: 01/19/17 07:14 01/19/17 07:14 Labs: Laboratory Last Values WBC 4.8 K/mm3 (4.5-11.0) 01/19/17 07:14 RBC 3.85 M/mm3 (3.65-5.03) 01/19/17 07:14 Hgb 10.7 gm/dl (10.1-14.3) 01/19/17 07:14 Hct 33.0 % (30.3-42.9) 01/19/17 07:14 MCV 86 fl (79-97) 01/19/17 07:14 MCH 28 pg (28-32) 01/19/17 07:14 MCHC 32 % (30-34) 01/19/17 07:14 RDW 14.1 % (13.2-15.2) 01/19/17 07:14 Plt Count 283 K/mm3 (140-440) 01/19/17 07:14 Lymph % (Auto) 37.3 % (13.4-35.0) H 01/19/17 07:14 [place] % (Auto) 9.2 % (0.0-7.3) H 01/19/17 07:14 Eos % (Auto) 4.8 % (0.0-4.3) H 01/19/17 07:14 Baso % (Auto) 0.3 % (0.0-1.8) 01/19/17 07:14 Lymph # 1.8 K/mm3 (1.2-5.4) 01/19/17 07:14 [place] # 0.4 K/mm3 (0.0-0.8) 01/19/17 07:14 Eos # 0.2 K/mm3 (0.0-0.4) 01/19/17 07:14 Baso # 0.0 K/mm3 (0.0-0.1) 01/19/17 07:14 Seg Neutrophils % 48.4 % (40.0-70.0) 01/19/17 07:14 Seg Neutrophils # 2.3 K/mm3 (1.8-7.7) 01/19/17 07:14 PT 13.5 Sec. (12.2-14.9) 01/17/17 22:23 INR 1.04 (0.87-1.13) 01/17/17 22:23 POC ABG pH 7.492 (7.35-7.45) H 01/19/17 21:48 POC ABG pCO2 31.1 (35-45) L 01/19/17 21:48 POC ABG pO2 81 (80-105) 01/19/17 21:48 POC ABG HCO3 23.8 01/19/17 21:48 POC ABG Total CO2 25 01/19/17 21:48 POC ABG O2 Sat 97 01/19/17 21:48 POC ABG Base Excess 1 01/19/17 21:48 FiO2 21 % 01/19/17 21:48 Sodium 139 mmol/L (137-145) 01/19/17 07:14 Potassium 3.9 mmol/L (3.6-5.0) 01/19/17 07:14 Chloride 102.4 mmol/L (98-107) 01/19/17 07:14 Carbon Dioxide 24 mmol/L (22-30) 01/19/17 07:14 Anion Gap 17 mmol/L 01/19/17 07:14 BUN 12 mg/dL (7-17) 01/19/17 07:14 Creatinine 0.9 mg/dL (0.7-1.2) 01/19/17 07:14 Estimated GFR > 60 ml/min 01/19/17 07:14 BUN/Creatinine Ratio 13.33 % 01/19/17 07:14 Glucose 96 mg/dL (65-100) 01/19/17 07:14 POC Glucose 119 (70-105) H 01/20/17 14:54 Calcium 8.6 mg/dL (8.4-10.2) 01/19/17 07:14 Total Bilirubin 0.4 mg/dL (0.1-1.2) 01/19/17 07:14 Direct Bilirubin < 0.2 mg/dL (0-0.2) 01/17/17 16:07 Indirect Bilirubin 0.1 mg/dL 01/17/17 16:07 AST 18 units/L (5-40) 01/19/17 07:14 ALT 23 units/L (7-56) 01/19/17 07:14 Alkaline Phosphatase 70 units/L (35-129) 01/19/17 07:14 Total Creatine Kinase 150 units/L (30-135) H 01/18/17 07:22 CK-MB (CK-2) 1.9 ng/mL (0.0-4.0) 01/18/17 07:22 CK-MB (CK-2) Rel Index 1.2 (0-4) 01/18/17 07:22 Troponin T < 0.010 ng/mL (0.00-0.029) 01/18/17 07:22 Total Protein 7.0 g/dL (6.3-8.2) 01/19/17 07:14 Albumin 3.4 g/dL (3.9-5) L 01/19/17 07:14 Albumin/Globulin Ratio 0.9 % 01/19/17 07:14 Lipase 24 units/L (13-60) 01/17/17 16:07
[2017-01-20] MEDS ORDERED: NACL 0.9% IR ONE (15:52)
[2017-01-20] MEDS ORDERED: MARCAINE 0.5% INFILTRATI ONE ×2 (15:52)
[2017-01-20] MEDS ORDERED: NACL 0.9% 1000 ML 1,000 ML ONE (15:59)
[2017-01-20] MEDS: DILAUDID IV PRN ×5 (16:48→23:17)
--- NOTE | 2017-01-20 18:08 | Post Anesthesia Evaluation ---
- Post Anesthesia Evaluation Patient Participated: Yes Airway Patent: Yes Stable Respiratory Function: Yes Nausea/Vomiting: No Temp > 96.8F: Yes Pain Manageable: Yes Adequeate Hydration: Yes Anesthesia Complications: No
[2017-01-20] MEDS: ZOFRAN IV PRN (20:38)
[2017-01-20] MEDS: LOVENOX SUB-Q SCH (20:58)
[2017-01-21] MEDS: NOVOLOG SUB-Q SCH ×5 (00:43→22:05)
[2017-01-21] MEDS: DILAUDID IV PRN ×4 (04:39→22:49)
--- NOTE | 2017-01-21 07:31 | Operative Report ---
PREOPERATIVE DIAGNOSES: 1. Gallbladder disease? pending final pathology report. 2. Diabetes mellitus?. 3. Exogenous obesity. 4. Chronic obstructive pulmonary disease with sleep apnea. POSTOPERATIVE DIAGNOSES: 1. Gallbladder disease? pending final pathology report. 2. Diabetes mellitus?. 3. Exogenous obesity. 4. Chronic obstructive pulmonary disease with sleep apnea. PROCEDURE PERFORMED: Laparoscopic cholecystectomy with conversion to open cholecystectomy. FINDINGS: There was no good exposure. The gallbladder looked a little bit edematous to me. There may be some sludge in it. I could not pinpoint any stone there. The cystic duct is about 2 mm, cystic artery is about 1 mm. This examination did not reveal anything specific. DESCRIPTION OF PROCEDURE: With the patient in supine position, after cleansing and draped in usual fashion, I was able to introduce a Veress needle in the right upper quadrant and slowly going in to a pressure of 15, I could not get any air to go in or CO2. So, I had to change to an open cholecystectomy. So, immediately with infracostal incision, I was able to go all the way into the peritoneum that was open. Once I was there, the gallbladder was large with minimal edema. So, I got to dissect it free from its fundus down using electrocautery all the way to the cystic duct and cystic artery, at this point these were hemoclipped x 3 and transected, and then the gallbladder was removed in toto. We were well satisfied. The area was then irrigated with sterile normal saline, and the wound was closed in layers. I used #0 Vicryl continuous for the deep fascia and #1 for the superficial fascia and for subcutaneous tissue I put 2 stitches or 3 and the danis for the skin. The patient was then transferred to the recovery room in good condition. JOB# [id number] SATINDER/SAKINA
[2017-01-21] MEDS: LOVENOX SUB-Q SCH (10:53)
--- NOTE | 2017-01-21 11:11 | Progress Note ---
Assessment and Plan - Patient Problems (1) KATERIN (obstructive sleep apnea) Current Visit: Yes Status: Acute Plan to address problem: - continue qhs NIV - weight loss counselled - avoid oversedation (2) Obesity Current Visit: Yes Status: Acute Qualifiers: Obesity type: O Obesity severity: O Plan to address problem: - as above - aspiration precautions - continue incentive spirometry (3) Hypoxemia Current Visit: Yes Status: Acute Plan to address problem: - continue ICS to prevent further derecruitment of alveolii - supplemental oxygen to keep O2 sats > 92% Subjective Date of service: 01/21/17 Principal diagnosis: Pre-op Pulmonary Clearance; KATERIN; Obesity Interval history: Seen and examined at bedside; 24 hour events reviewed; nursing and respiratory care staff consulted; no adverse overnight events reported to me; resting peacefully; denies acute chest pains or increased SOB; No emesis or overt aspiration Objective Vital Signs - 12hr 01/20/17 01/20/17 01/21/17 23:17 23:47 01:00 Respiratory 20 18 Rate Respiratory 18 Rate [Right Chest] 01/21/17 04:39 Respiratory 20 Rate Respiratory Rate [Right Chest] Constitutional: alert, appears uncomfortable Eyes: non-icteric ENT: oropharynx moist Neck: supple, no lymphadenopathy Effort: mildly labored Ascultation: Bilateral: clear, diminished breath sounds (bases) Cardiovascular: regular rate and rhythm Gastrointestinal: normoactive bowel sounds, soft, tender, non-distended Integumentary: normal Extremities: no cyanosis, no edema, pulses normal, no ischemia or petechiae Neurologic: normal mental status, non-focal exam, pupils equal and round, motor strength normal and Psychiatric: mood appropriate, affect normal CBC and BMP: 01/22/17 09:55 01/22/17 09:55 ABG, PT/INR, D-dimer: ABG POC ABG pH 7.492 (7.35-7.45) H 01/19/17 21:48 POC ABG pCO2 31.1 (35-45) L 01/19/17 21:48 POC ABG pO2 81 (80-105) 01/19/17 21:48 POC ABG HCO3 23.8 01/19/17 21:48 POC ABG Total CO2 25 01/19/17 21:48 POC ABG O2 Sat 97 01/19/17 21:48 PT/INR, D-dimer PT 13.5 Sec. (12.2-14.9) 01/17/17 22:23 INR 1.04 (0.87-1.13) 01/17/17 22:23 Abnormal lab findings: Abnormal Labs 01/18/17 01/19/17 01/19/17 07:22 07:14 07:14 Lymph % (Auto) 37.3 H [place] % (Auto) 9.2 H Eos % (Auto) 4.8 H POC ABG pH POC ABG pCO2 POC Glucose Total Creatine Kinase 150 H Albumin 3.4 L 01/19/17 01/20/17 01/20/17 21:48 13:45 14:54 Lymph % (Auto) [place] % (Auto) Eos % (Auto) POC ABG pH 7.492 H POC ABG pCO2 31.1 L POC Glucose 69 L 119 H Total Creatine Kinase Albumin 01/20/17 22:30 Lymph % (Auto) [place] % (Auto) Eos % (Auto) POC ABG pH POC ABG pCO2 POC Glucose 119 H Total Creatine Kinase Albumin
--- NOTE | 2017-01-21 11:24 | Progress Note ---
Subjective Narrative: doing OK wond clean advised to ambulate , will start PO Objective Vital Signs - 12hr 01/20/17 01/21/17 01/21/17 23:47 01:00 04:39 Respiratory 18 20 Rate Respiratory 18 Rate [Right Chest] - Labs 01/19/17 07:14 01/19/17 07:14
--- NOTE | 2017-01-21 15:04 | Progress Note ---
Assessment and Plan Assessment and plan: Cholecystitis due to biliary sludge Hypertension Diabetes mellitus type II History of GERD History of COPD not on any exacerbation Plan: Advance diet as tolerated, IV fluid, IV morphine, HIDA scan showed positive biliary sludge Status post open cholecystectomy on 01/20 Check fingersticks and continue insulin sliding scale Nebulizer breathing treatment as needed Continue DVT prophylaxis History Interval history: Patient seen and examined. Medical records and medication list reviewed. No acute event overnight noted by the RN. s/p cholecystectomy on 01/20/17 Started on clear liquid today Discussed plan of care at bedside with patient and her family. Hospitalist Physical - Physical exam Narrative exam: GENERAL: Obese -Pakistani female lying on bed appeared to be in mild discomfort. HEENT: Normocephalic. Atraumatic. No conjunctival congestion or icterus. Patient has moist mucous membranes. NECK: Supple. Trachea midline. CHEST/LUNGS: Clear to auscultated bilaterally, breathing nonlabored. No wheezes crackles or rhonchi. HEART/CARDIOVASCULAR: Regular in rate and rhythm. S1 and S2 positive. ABDOMEN: Abdomen is soft, mild diffuse tenderness. Surgical sutures in place. SKIN: There is no rash. Warm and dry. NEURO: No focal motor deficit. Follows command. MUSCULOSKELETAL: No joint effusion or tenderness. EXTRIMITY: No edema, no cyanosis or clubbing. PSYCH: Cooperative. - Constitutional Vitals: Temp Pulse Resp BP Pulse Ox 98.2 F 95 H 20 132/85 96 01/20/17 22:00 01/20/17 22:00 01/21/17 04:39 01/20/17 22:00 01/20/17 21:36 Results - Labs CBC & Chem 7: 01/19/17 07:14 01/19/17 07:14 Labs: Laboratory Last Values WBC 4.8 K/mm3 (4.5-11.0) 01/19/17 07:14 RBC 3.85 M/mm3 (3.65-5.03) 01/19/17 07:14 Hgb 10.7 gm/dl (10.1-14.3) 01/19/17 07:14 Hct 33.0 % (30.3-42.9) 01/19/17 07:14 MCV 86 fl (79-97) 01/19/17 07:14 MCH 28 pg (28-32) 01/19/17 07:14 MCHC 32 % (30-34) 01/19/17 07:14 RDW 14.1 % (13.2-15.2) 01/19/17 07:14 Plt Count 283 K/mm3 (140-440) 01/19/17 07:14 Lymph % (Auto) 37.3 % (13.4-35.0) H 01/19/17 07:14 Price % (Auto) 9.2 % (0.0-7.3) H 01/19/17 07:14 Eos % (Auto) 4.8 % (0.0-4.3) H 01/19/17 07:14 Baso % (Auto) 0.3 % (0.0-1.8) 01/19/17 07:14 Lymph # 1.8 K/mm3 (1.2-5.4) 01/19/17 07:14 Price # 0.4 K/mm3 (0.0-0.8) 01/19/17 07:14 Eos # 0.2 K/mm3 (0.0-0.4) 01/19/17 07:14 Baso # 0.0 K/mm3 (0.0-0.1) 01/19/17 07:14 Seg Neutrophils % 48.4 % (40.0-70.0) 01/19/17 07:14 Seg Neutrophils # 2.3 K/mm3 (1.8-7.7) 01/19/17 07:14 PT 13.5 Sec. (12.2-14.9) 01/17/17 22:23 INR 1.04 (0.87-1.13) 01/17/17 22:23 POC ABG pH 7.492 (7.35-7.45) H 01/19/17 21:48 POC ABG pCO2 31.1 (35-45) L 01/19/17 21:48 POC ABG pO2 81 (80-105) 01/19/17 21:48 POC ABG HCO3 23.8 01/19/17 21:48 POC ABG Total CO2 25 01/19/17 21:48 POC ABG O2 Sat 97 01/19/17 21:48 POC ABG Base Excess 1 01/19/17 21:48 FiO2 21 % 01/19/17 21:48 Sodium 139 mmol/L (137-145) 01/19/17 07:14 Potassium 3.9 mmol/L (3.6-5.0) 01/19/17 07:14 Chloride 102.4 mmol/L (98-107) 01/19/17 07:14 Carbon Dioxide 24 mmol/L (22-30) 01/19/17 07:14 Anion Gap 17 mmol/L 01/19/17 07:14 BUN 12 mg/dL (7-17) 01/19/17 07:14 Creatinine 0.9 mg/dL (0.7-1.2) 01/19/17 07:14 Estimated GFR > 60 ml/min 01/19/17 07:14 BUN/Creatinine Ratio 13.33 % 01/19/17 07:14 Glucose 96 mg/dL (65-100) 01/19/17 07:14 POC Glucose 81 (70-105) 01/21/17 12:26 Calcium 8.6 mg/dL (8.4-10.2) 01/19/17 07:14 Total Bilirubin 0.4 mg/dL (0.1-1.2) 01/19/17 07:14 Direct Bilirubin < 0.2 mg/dL (0-0.2) 01/17/17 16:07 Indirect Bilirubin 0.1 mg/dL 01/17/17 16:07 AST 18 units/L (5-40) 01/19/17 07:14 ALT 23 units/L (7-56) 01/19/17 07:14 Alkaline Phosphatase 70 units/L (35-129) 01/19/17 07:14 Total Creatine Kinase 150 units/L (30-135) H 01/18/17 07:22 CK-MB (CK-2) 1.9 ng/mL (0.0-4.0) 01/18/17 07:22 CK-MB (CK-2) Rel Index 1.2 (0-4) 01/18/17 07:22 Troponin T < 0.010 ng/mL (0.00-0.029) 01/18/17 07:22 Total Protein 7.0 g/dL (6.3-8.2) 01/19/17 07:14 Albumin 3.4 g/dL (3.9-5) L 01/19/17 07:14 Albumin/Globulin Ratio 0.9 % 01/19/17 07:14 Lipase 24 units/L (13-60) 01/17/17 16:07
[2017-01-22] MEDS: DILAUDID IV PRN (06:05)
[2017-01-22] MEDS: NOVOLOG SUB-Q SCH ×4 (08:22→22:00)
[2017-01-22] MEDS: LOVENOX SUB-Q SCH (09:32)
[2017-01-22 10:44] LABS: Hematocrit 32.7 % (30.3-42.9); Hemoglobin 10.5 gm/dl (10.1-14.3); Mean Corpuscular HGB Conc 32 % (30-34); Mean Corpuscular Hemoglobin 28 pg (28-32); Mean Corpuscular Volume 85 fl (79-97); Platelet Count 288 K/mm3 (140-440); Red Blood Count 3.83 M/mm3 (3.65-5.03); Red Cell Distribution Width 13.9 % (13.2-15.2); White Blood Count 8.4 K/mm3 (4.5-11.0)
[2017-01-22 10:51] LABS: BUN/Creatinine Ratio 13.33; Blood Urea Nitrogen 12 mg/dL (7-17); Carbon Dioxide 24 mmol/L (22-30); Glucose 116 mg/dL (65-100)
[2017-01-22 10:52] LABS: Anion Gap 16 mmol/L; Chloride 97.3 mmol/L (98-107); Potassium 3.8 mmol/L (3.6-5.0); Sodium 133 mmol/L (137-145)
--- NOTE | 2017-01-22 11:04 | Progress Note ---
Assessment and Plan - Patient Problems (1) KATERIN (obstructive sleep apnea) Current Visit: Yes Status: Acute Plan to address problem: (Again stressed the importance of treating sleep apnea syndromes) - continue qhs NIV - weight loss counselled - continue to avoid oversedation (2) Obesity Current Visit: Yes Status: Acute Qualifiers: Obesity type: O Obesity severity: O Plan to address problem: - as above - aspiration precautions - continue incentive spirometry (3) Hypoxemia Current Visit: Yes Status: Acute Plan to address problem: - continue ICS to prevent further derecruitment of alveolii - supplemental oxygen to keep O2 sats > 92% Subjective Date of service: 01/22/17 Principal diagnosis: Pre-op Pulmonary Clearance; KATERIN; Obesity Interval history: Seen and examined at bedside; 24 hour events reviewed; nursing and respiratory care staff consulted; no adverse overnight events reported to me; sitting on side of bed; states that she was not put on BIPAP last night but admits she did not call for it (She was busy when respiratory came to put it on initially) Objective Vital Signs - 12hr 01/22/17 01/22/17 01/22/17 00:00 07:30 09:36 Temperature 98.1 F 98 F Pulse Rate [ 89 Left Radial] Pulse Rate [ 96 H Right Radial] Respiratory 18 20 Rate Respiratory 17 Rate [Right Chest] Blood Pressure 154/82 154/88 [Left Arm] O2 Sat by Pulse 94 98 Oximetry Constitutional: alert, appears uncomfortable Eyes: non-icteric ENT: oropharynx moist Neck: supple, no lymphadenopathy Effort: mildly labored Ascultation: Bilateral: clear, diminished breath sounds (bases) Cardiovascular: regular rate and rhythm Gastrointestinal: normoactive bowel sounds, soft, tender, non-distended Integumentary: normal Extremities: no cyanosis, no edema, pulses normal, no ischemia or petechiae Neurologic: normal mental status, non-focal exam, pupils equal and round, motor strength normal and Psychiatric: mood appropriate, affect normal CBC and BMP: 01/22/17 09:55 01/22/17 09:55 ABG, PT/INR, D-dimer: ABG POC ABG pH 7.492 (7.35-7.45) H 01/19/17 21:48 POC ABG pCO2 31.1 (35-45) L 01/19/17 21:48 POC ABG pO2 81 (80-105) 01/19/17 21:48 POC ABG HCO3 23.8 01/19/17 21:48 POC ABG Total CO2 25 01/19/17 21:48 POC ABG O2 Sat 97 01/19/17 21:48 PT/INR, D-dimer PT 13.5 Sec. (12.2-14.9) 01/17/17 22:23 INR 1.04 (0.87-1.13) 01/17/17 22:23 Abnormal lab findings: Abnormal Labs 01/18/17 01/19/17 01/19/17 07:22 07:14 07:14 Lymph % (Auto) 37.3 H [place] % (Auto) 9.2 H Eos % (Auto) 4.8 H POC ABG pH POC ABG pCO2 Sodium Chloride Glucose POC Glucose Total Creatine Kinase 150 H Albumin 3.4 L 01/19/17 01/20/17 01/20/17 21:48 13:45 14:54 Lymph % (Auto) [place] % (Auto) Eos % (Auto) POC ABG pH 7.492 H POC ABG pCO2 31.1 L Sodium Chloride Glucose POC Glucose 69 L 119 H Total Creatine Kinase Albumin 01/20/17 01/21/17 01/21/17 22:30 16:31 22:22 Lymph % (Auto) [place] % (Auto) Eos % (Auto) POC ABG pH POC ABG pCO2 Sodium Chloride Glucose POC Glucose 119 H 110 H 114 H Total Creatine Kinase Albumin 01/22/17 09:55 Lymph % (Auto) [place] % (Auto) Eos % (Auto) POC ABG pH POC ABG pCO2 Sodium 133 L Chloride 97.3 L Glucose 116 H POC Glucose Total Creatine Kinase Albumin
[2017-01-22] MEDS ORDERED: MORPHINE IV PRN (12:19)
[2017-01-22] MEDS: ZITHROMAX PO SCH (13:53)
[2017-01-22] MEDS ORDERED: MILK OF MAGNESIA PO ONE (14:05)
--- NOTE | 2017-01-22 14:05 | Progress Note ---
Subjective Patient Reports: Positive: feels better, still having pain, pain is less, flatus , no bowel movement Narrative: doing OK no BM indicated to PT the copd she might have will this for pulmunology . Objective Vital Signs - 12hr 01/22/17 01/22/17 07:30 09:36 Temperature 98 F Pulse Rate [ 96 H Right Radial] Respiratory 20 Rate Respiratory 17 Rate [Right Chest] Blood Pressure 154/88 [Left Arm] O2 Sat by Pulse 98 Oximetry - Labs 01/22/17 09:55 01/22/17 09:55 Diabetes panel 01/22/17 Range/Units 09:55 Sodium 133 L (137-145) mmol/L Potassium 3.8 (3.6-5.0) mmol/L Chloride 97.3 L (98-107) mmol/L Carbon Dioxide 24 (22-30) mmol/L BUN 12 (7-17) mg/dL Creatinine 0.9 (0.7-1.2) mg/dL Glucose 116 H (65-100) mg/dL Calcium 9.0 (8.4-10.2) mg/dL Calcium panel 01/22/17 Range/Units 09:55 Calcium 9.0 (8.4-10.2) mg/dL Pituitary panel 01/22/17 Range/Units 09:55 Sodium 133 L (137-145) mmol/L Potassium 3.8 (3.6-5.0) mmol/L Chloride 97.3 L (98-107) mmol/L Carbon Dioxide 24 (22-30) mmol/L BUN 12 (7-17) mg/dL Creatinine 0.9 (0.7-1.2) mg/dL Glucose 116 H (65-100) mg/dL Calcium 9.0 (8.4-10.2) mg/dL Adrenal panel 01/22/17 Range/Units 09:55 Sodium 133 L (137-145) mmol/L Potassium 3.8 (3.6-5.0) mmol/L Chloride 97.3 L (98-107) mmol/L Carbon Dioxide 24 (22-30) mmol/L BUN 12 (7-17) mg/dL Creatinine 0.9 (0.7-1.2) mg/dL Glucose 116 H (65-100) mg/dL Calcium 9.0 (8.4-10.2) mg/dL
[2017-01-22 15:00] LABS: Alanine Aminotransferase 33 units/L (7-56); Albumin/Globulin Ratio 0.7 %; Alkaline Phosphatase 70 units/L (35-129); Bilirubin,Total 0.3 mg/dL (0.1-1.2); Total Protein 7.2 g/dL (6.3-8.2)
[2017-01-22 15:01] LABS: Bilirubin,Direct < 0.2 mg/dL (0-0.2)
--- NOTE | 2017-01-22 15:17 | Progress Note ---
Assessment and Plan Assessment and plan: Cholecystitis due to biliary sludge Hypertension Diabetes mellitus type II History of GERD History of COPD with bronchitis Plan: Advance diet as tolerated, IV fluid, d/c morphin HIDA scan showed positive biliary sludge Status post open cholecystectomy on 01/20 Check fingersticks and continue insulin sliding scale Nebulizer breathing treatment as needed Add zithromax Continue DVT prophylaxis Ambulate by RN/PT Disposition: when clear by surgery History Interval history: Patient seen and examined. Medical records and medication list reviewed. No acute event overnight noted by the RN. s/p cholecystectomy on 01/20/17 advanced diet today, no BM yet Discussed plan of care at bedside with patient and her family. Hospitalist Physical - Physical exam Narrative exam: GENERAL: Obese -[place] female lying on bed appeared to be in mild discomfort. HEENT: Normocephalic. Atraumatic. No conjunctival congestion or icterus. Patient has moist mucous membranes. NECK: Supple. Trachea midline. CHEST/LUNGS: Clear to auscultated bilaterally, breathing nonlabored. No wheezes crackles or rhonchi. HEART/CARDIOVASCULAR: Regular in rate and rhythm. S1 and S2 positive. ABDOMEN: Abdomen is soft, mild diffuse tenderness. Surgical sutures in place. SKIN: There is no rash. Warm and dry. NEURO: No focal motor deficit. Follows command. MUSCULOSKELETAL: No joint effusion or tenderness. EXTRIMITY: No edema, no cyanosis or clubbing. PSYCH: Cooperative. - Constitutional Vitals: Temp Pulse Resp BP Pulse Ox 98 F 96 H 17 154/88 98 01/22/17 07:30 01/22/17 07:30 01/22/17 09:36 01/22/17 07:30 01/22/17 07:30 Results - Labs CBC & Chem 7: 01/22/17 09:55 01/22/17 09:55 Labs: Laboratory Last Values WBC 8.4 K/mm3 (4.5-11.0) 01/22/17 09:55 RBC 3.83 M/mm3 (3.65-5.03) 01/22/17 09:55 Hgb 10.5 gm/dl (10.1-14.3) 01/22/17 09:55 Hct 32.7 % (30.3-42.9) 01/22/17 09:55 MCV 85 fl (79-97) 01/22/17 09:55 MCH 28 pg (28-32) 01/22/17 09:55 MCHC 32 % (30-34) 01/22/17 09:55 RDW 13.9 % (13.2-15.2) 01/22/17 09:55 Plt Count 288 K/mm3 (140-440) 01/22/17 09:55 Lymph % (Auto) 37.3 % (13.4-35.0) H 01/19/17 07:14 [place] % (Auto) 9.2 % (0.0-7.3) H 01/19/17 07:14 Eos % (Auto) 4.8 % (0.0-4.3) H 01/19/17 07:14 Baso % (Auto) 0.3 % (0.0-1.8) 01/19/17 07:14 Lymph # 1.8 K/mm3 (1.2-5.4) 01/19/17 07:14 [place] # 0.4 K/mm3 (0.0-0.8) 01/19/17 07:14 Eos # 0.2 K/mm3 (0.0-0.4) 01/19/17 07:14 Baso # 0.0 K/mm3 (0.0-0.1) 01/19/17 07:14 Seg Neutrophils % 48.4 % (40.0-70.0) 01/19/17 07:14 Seg Neutrophils # 2.3 K/mm3 (1.8-7.7) 01/19/17 07:14 PT 13.5 Sec. (12.2-14.9) 01/17/17 22:23 INR 1.04 (0.87-1.13) 01/17/17 22:23 POC ABG pH 7.492 (7.35-7.45) H 01/19/17 21:48 POC ABG pCO2 31.1 (35-45) L 01/19/17 21:48 POC ABG pO2 81 (80-105) 01/19/17 21:48 POC ABG HCO3 23.8 01/19/17 21:48 POC ABG Total CO2 25 01/19/17 21:48 POC ABG O2 Sat 97 01/19/17 21:48 POC ABG Base Excess 1 01/19/17 21:48 FiO2 21 % 01/19/17 21:48 Sodium 133 mmol/L (137-145) L 01/22/17 09:55 Potassium 3.8 mmol/L (3.6-5.0) 01/22/17 09:55 Chloride 97.3 mmol/L (98-107) L 01/22/17 09:55 Carbon Dioxide 24 mmol/L (22-30) 01/22/17 09:55 Anion Gap 16 mmol/L 01/22/17 09:55 BUN 12 mg/dL (7-17) 01/22/17 09:55 Creatinine 0.9 mg/dL (0.7-1.2) 01/22/17 09:55 Estimated GFR > 60 ml/min 01/22/17 09:55 BUN/Creatinine Ratio 13.33 % 01/22/17 09:55 Glucose 116 mg/dL (65-100) H 01/22/17 09:55 POC Glucose 104 (70-105) 01/22/17 08:00 Calcium 9.0 mg/dL (8.4-10.2) 01/22/17 09:55 Total Bilirubin 0.3 mg/dL (0.1-1.2) 01/22/17 09:55 Direct Bilirubin < 0.2 mg/dL (0-0.2) 01/22/17 09:55 Indirect Bilirubin 0.1 mg/dL 01/17/17 16:07 AST 33 units/L (5-40) 01/22/17 09:55 ALT 33 units/L (7-56) 01/22/17 09:55 Alkaline Phosphatase 70 units/L (35-129) 01/22/17 09:55 Total Creatine Kinase 150 units/L (30-135) H 01/18/17 07:22 CK-MB (CK-2) 1.9 ng/mL (0.0-4.0) 01/18/17 07:22 CK-MB (CK-2) Rel Index 1.2 (0-4) 01/18/17 07:22 Troponin T < 0.010 ng/mL (0.00-0.029) 01/18/17 07:22 Total Protein 7.2 g/dL (6.3-8.2) 01/22/17 09:55 Albumin 3.0 g/dL (3.9-5) L 01/22/17 09:55 Albumin/Globulin Ratio 0.7 % 01/22/17 09:55 Lipase 24 units/L (13-60) 01/17/17 16:07
[2017-01-22] MEDS: NORCO 5/325 PO PRN ×2 (15:25→20:45)
[2017-01-23] MEDS: ZOFRAN IV PRN (01:20)
[2017-01-23 08:06] VITALS: BP 160/84
[2017-01-23] MEDS: NOVOLOG SUB-Q SCH (09:51)
[2017-01-23] MEDS: ZITHROMAX PO SCH (09:53)
[2017-01-23] MEDS: LOVENOX SUB-Q SCH (09:53)
[2017-01-23] MEDS: NORCO 5/325 PO PRN (09:54)
--- NOTE | 2017-01-23 10:12 | Progress Note ---
Subjective Narrative: Pt is doing fine , indicated to her to see Dr begum , no driving , no heavy meals , Pt can go home to see me in 1 week ,talked to Dr Sue , Objective Vital Signs - 12hr 01/22/17 01/22/17 01/23/17 22:45 23:15 00:00 Temperature 98.8 F Pulse Rate [ 108 H Left Radial] Pulse Rate [ Right Radial] Respiratory 20 18 20 Rate Blood Pressure 164/88 [Left Arm] O2 Sat by Pulse 96 Oximetry 01/23/17 01/23/17 04:00 08:00 Temperature 99.6 F 98.4 F Pulse Rate [ 92 H Left Radial] Pulse Rate [ 81 Right Radial] Respiratory 20 24 Rate Blood Pressure 152/77 160/84 [Left Arm] O2 Sat by Pulse 96 98 Oximetry - Labs 01/22/17 09:55 01/22/17 09:55 Diabetes panel 01/22/17 01/22/17 Range/Units 09:55 09:55 Sodium 133 L (137-145) mmol/L Potassium 3.8 (3.6-5.0) mmol/L Chloride 97.3 L (98-107) mmol/L Carbon Dioxide 24 (22-30) mmol/L BUN 12 (7-17) mg/dL Creatinine 0.9 (0.7-1.2) mg/dL Glucose 116 H (65-100) mg/dL Calcium 9.0 (8.4-10.2) mg/dL AST 33 (5-40) units/L ALT 33 (7-56) units/L Alkaline Phosphatase 70 (35-129) units/L Total Protein 7.2 (6.3-8.2) g/dL Albumin 3.0 L (3.9-5) g/dL Calcium panel 01/22/17 01/22/17 Range/Units 09:55 09:55 Calcium 9.0 (8.4-10.2) mg/dL Albumin 3.0 L (3.9-5) g/dL Pituitary panel 01/22/17 Range/Units 09:55 Sodium 133 L (137-145) mmol/L Potassium 3.8 (3.6-5.0) mmol/L Chloride 97.3 L (98-107) mmol/L Carbon Dioxide 24 (22-30) mmol/L BUN 12 (7-17) mg/dL Creatinine 0.9 (0.7-1.2) mg/dL Glucose 116 H (65-100) mg/dL Calcium 9.0 (8.4-10.2) mg/dL Adrenal panel 01/22/17 01/22/17 Range/Units 09:55 09:55 Sodium 133 L (137-145) mmol/L Potassium 3.8 (3.6-5.0) mmol/L Chloride 97.3 L (98-107) mmol/L Carbon Dioxide 24 (22-30) mmol/L BUN 12 (7-17) mg/dL Creatinine 0.9 (0.7-1.2) mg/dL Glucose 116 H (65-100) mg/dL Calcium 9.0 (8.4-10.2) mg/dL Total Bilirubin 0.3 (0.1-1.2) mg/dL AST 33 (5-40) units/L ALT 33 (7-56) units/L Alkaline Phosphatase 70 (35-129) units/L Total Protein 7.2 (6.3-8.2) g/dL Albumin 3.0 L (3.9-5) g/dL
--- NOTE | 2017-01-23 11:00 | Discharge Summary ---
Providers - Providers Date of Admission: 01/18/17 01:44 Date of discharge: 01/23/17 Attending physician: ARIELLE BUTLER 01/19/17 17:04 Consult to Physician [CONS] Routine Consulting Provider: KAMRAN MULLEN Reason For Exam: SOB Place consult to:: Dr Box Notified:: n Was contact made?: Yes 01/21/17 15:04 Physical Therapy Evaluation and Treat [CONS] Routine Comment: Reason For Exam: Ambulation Primary care physician: JOSE E MURRAY Hospitalization Condition: Good Hospital course: 56-year-old woman with a history of hypertension, diabetes, GERD comes to the emergency room with complaints of right upper quadrant pain. Her abdominal US showed billiary sludge, HIDA and MRI of abdomen didnot show cholecystitis. She was evaluated by surgery and went through open cholecystectomy. her symptom improved after the surgery, diet was Advance diet as tolerated. She was placed on zithromax for acute bronchitis. She was ambulating and tolerated diet. She was discharged home in stable condition. Discharge Diagnosis: Cholecystitis due to biliary sludge COPD with bronchitis Hypertension, benign Diabetes mellitus type II History of GERD Disposition: DISCHARGED TO HOME OR SELFCARE Time spent for discharge: 32 minutes Core Measure Documentation - Palliative Care Palliative Care/ Comfort Measures: Not Applicable - Core Measures Any of the following diagnoses?: none Exam - Physical Exam Narrative exam: GENERAL: Obese -[place] female lying on bed appeared to be in no discomfort. HEENT: Normocephalic. Atraumatic. No conjunctival congestion or icterus. Patient has moist mucous membranes. NECK: Supple. Trachea midline. CHEST/LUNGS: Clear to auscultated bilaterally, breathing nonlabored. No wheezes crackles or rhonchi. HEART/CARDIOVASCULAR: Regular in rate and rhythm. S1 and S2 positive. ABDOMEN: Abdomen is soft, no tenderness. Surgical sutures in place. SKIN: There is no rash. Warm and dry. NEURO: No focal motor deficit. Follows command. MUSCULOSKELETAL: No joint effusion or tenderness. EXTRIMITY: No edema, no cyanosis or clubbing. PSYCH: Cooperative. - Constitutional Vitals: Temp Pulse Resp BP Pulse Ox 98.4 F 81 24 160/84 98 01/23/17 08:00 01/23/17 08:00 01/23/17 08:00 01/23/17 08:00 01/23/17 08:00 Plan Activity: advance as tolerated Weight Bearing Status: Weight Bear as Tolerated Diet: low fat, low salt Additional Instructions: F/u with surgery in one week. Consume fat free ADA diet. Follow up with: JOSE E MURRAY MD [Primary Care Provider] - 3-5 Days Prescriptions: Azithromycin [Zithromax TAB] 500 mg PO QDAY #4 tablet HYDROcodone/APAP 5-325 [Cascade 5/325] 1 each PO Q6HR PRN #15 tablet PRN Reason: Pain Polyethylene Glycol 3350 [Miralax 3350] 17 gm PO BID #7 packet
--- NOTE | 2017-01-23 12:30 | Progress Note ---
Assessment and Plan - Patient Problems (1) KATERIN (obstructive sleep apnea) Current Visit: Yes Status: Acute (2) Obesity Current Visit: Yes Status: Acute Qualifiers: Obesity type: O Obesity severity: O (3) Hypoxemia Current Visit: Yes Status: Acute Subjective Date of service: 01/23/17 Principal diagnosis: Pre-op Pulmonary Clearance; KATERIN; Obesity Interval history: Seen and examined at bedside; 24 hour events reviewed; nursing and respiratory care staff consulted; no adverse overnight events reported to me; Objective Vital Signs - 12hr 01/23/17 01/23/17 01/23/17 04:00 08:00 10:00 Temperature 99.6 F 98.4 F Pulse Rate [ 92 H Left Radial] Pulse Rate [ 81 Right Radial] Respiratory 20 24 Rate Respiratory 17 Rate [Right Chest] Blood Pressure 152/77 160/84 [Left Arm] O2 Sat by Pulse 96 98 Oximetry Constitutional: alert, appears uncomfortable Eyes: non-icteric ENT: oropharynx moist Neck: supple, no lymphadenopathy Effort: mildly labored Ascultation: Bilateral: clear, diminished breath sounds (bases) Cardiovascular: regular rate and rhythm Gastrointestinal: normoactive bowel sounds, soft, tender, non-distended Integumentary: normal Extremities: no cyanosis, no edema, pulses normal, no ischemia or petechiae Neurologic: normal mental status, non-focal exam, pupils equal and round, motor strength normal and Psychiatric: mood appropriate, affect normal CBC and BMP: 01/22/17 09:55 01/22/17 09:55 ABG, PT/INR, D-dimer: ABG POC ABG pH 7.492 (7.35-7.45) H 01/19/17 21:48 POC ABG pCO2 31.1 (35-45) L 01/19/17 21:48 POC ABG pO2 81 (80-105) 01/19/17 21:48 POC ABG HCO3 23.8 01/19/17 21:48 POC ABG Total CO2 25 01/19/17 21:48 POC ABG O2 Sat 97 01/19/17 21:48 PT/INR, D-dimer PT 13.5 Sec. (12.2-14.9) 01/17/17 22:23 INR 1.04 (0.87-1.13) 01/17/17 22:23 Abnormal lab findings: Abnormal Labs 01/18/17 01/19/17 01/19/17 07:22 07:14 07:14 Lymph % (Auto) 37.3 H [place] % (Auto) 9.2 H Eos % (Auto) 4.8 H POC ABG pH POC ABG pCO2 Sodium Chloride Glucose POC Glucose Total Creatine Kinase 150 H Albumin 3.4 L 01/19/17 01/20/17 01/20/17 21:48 13:45 14:54 Lymph % (Auto) [place] % (Auto) Eos % (Auto) POC ABG pH 7.492 H POC ABG pCO2 31.1 L Sodium Chloride Glucose POC Glucose 69 L 119 H Total Creatine Kinase Albumin 01/20/17 01/21/17 01/21/17 22:30 16:31 22:22 Lymph % (Auto) [place] % (Auto) Eos % (Auto) POC ABG pH POC ABG pCO2 Sodium Chloride Glucose POC Glucose 119 H 110 H 114 H Total Creatine Kinase Albumin 01/22/17 01/22/17 01/22/17 09:55 09:55 12:33 Lymph % (Auto) [place] % (Auto) Eos % (Auto) POC ABG pH POC ABG pCO2 Sodium 133 L Chloride 97.3 L Glucose 116 H POC Glucose 132 H Total Creatine Kinase Albumin 3.0 L 01/22/17 01/22/17 01/23/17 16:17 21:33 11:02 Lymph % (Auto) [place] % (Auto) Eos % (Auto) POC ABG pH POC ABG pCO2 Sodium Chloride Glucose POC Glucose 136 H 137 H 107 H Total Creatine Kinase Albumin
== END 2017-01-23 13:45 | disposition home or self-care (01) | DRG 415 ==
LOC: ED 09:29 → 3A 01-18 01:44 → 4A 01-18 05:25 → 2B-SURG 01-20 18:24
PROVIDERS: ADMIT Internal Medicine; ATTEND Internal Medicine
PROC: 4A033R1 Measurement of Arterial Saturation, Peripheral, Percutaneous Approach (ICD-10-PCS; 2017-01-18)
PROC: 5A09357 Assistance with Respiratory Ventilation, Less than 24 Consecutive Hours, Continuous Positive Airway Pressure (ICD-10-PCS; 2017-01-18)
PROC: 0FT40ZZ Resection of Gallbladder, Open Approach (ICD-10-PCS; principal; 2017-01-20)
PROC: 0FJ44ZZ Inspection of Gallbladder, Percutaneous Endoscopic Approach (ICD-10-PCS; 2017-01-20)
DX: K83.0 Cholangitis (principal); J90 Pleural effusion, not elsewhere classified; Z68.42 Body mass index [BMI] 45.0-49.9, adult; K81.9 Cholecystitis, unspecified; K21.9 Gastro-esophageal reflux disease without esophagitis; E11.9 Type 2 diabetes mellitus without complications; I10 Essential (primary) hypertension; E66.01 Morbid (severe) obesity due to excess calories; G47.33 Obstructive sleep apnea (adult) (pediatric); R09.02 Hypoxemia; J44.9 Chronic obstructive pulmonary disease, unspecified; Z90.710 Acquired absence of both cervix and uterus; Z98.891 History of uterine scar from previous surgery; Z82.49 Family history of ischemic heart disease and other diseases of the circulatory system; Z91.041 Radiographic dye allergy status
CPT/HCPCS: 36415; 36600; 71010; 74181; 76705; 78226; 80048; 80053; 80074; 82550; 82553; 82803; 82962; 83690; 84484; 85025; 85027; 85610; 88304; 93005; 93010; 94660; 96361; 96365; 96375; 96376; A9537; J0360; J0690; J1100; J1170; J1650; J2250; J2270; J2405; J2543; J2704; J2710; J3010; J7030

== ENCOUNTER 2017-02-11 11:45 | Outpatient (CLI) | payer OTHER ==
--- NOTE | 2017-02-11 15:06 | Mammography Report ---
BILATERAL DIGITAL SCREENING MAMMOGRAM with CAD: 02/11/17 11:45:00 CLINICAL: Routine screening. COMPARISON:01/15/16 FINDINGS: The breasts are almost entirely fatty. No mass, architectural distortion or suspicious calcifications. IMPRESSION: No mammographic evidence of malignancy. BI-RADS CATEGORY: 1 - - Negative RECOMMENDATION: Routine mammographic screening in one year. COMMENT: Patient follow-up letters are generated by our [employer] application.
== END 2017-02-11 11:46 | disposition home or self-care (01) ==
LOC: SPVWC 11:45
PROVIDERS: ATTEND Internal Medicine
DX: Z12.31 Encounter for screening mammogram for malignant neoplasm of breast (principal)
CPT/HCPCS: 77067; G0202

== ENCOUNTER 2018-02-13 08:02 | Outpatient (CLI) | payer OTHER ==
--- NOTE | 2018-02-13 13:37 | Mammography Report ---
BILATERAL MAMMOGRAM: FINDINGS: The breasts are almost entirely fat (<25% glandular). No mass, distortion, suspicious calcification, or skin change is seen. No interval change when compared to exams dating back to December 2015. CAD was utilized. IMPRESSION: Negative mammogram. There is no mammographic evidence of malignancy. RECOMMENDATION: Follow-up per ACS guidelines. BI-RADS CATEGORY: 1 = Negative ACR BI-RADS MAMMOGRAPHIC CODES: 0 = Needs additional imaging evaluation; 1 = Negative; 2 = Benign; 3 = Probably benign; 4 = Suspicious; 5 = Malignant; 6 = Known biopsy-proven malignancy COMMENT: 1. Dense breast tissue, i.e., adenosis, fibrocystic changes, etc., may obscure an underlying neoplasm. 2. Approximately 10% of cancers are not detected with mammography. 3. A negative mammography report should not delay biopsy if a clinically suspicious mass is present. COMMENT: Patient follow-up letters are generated in [employer].
== END 2018-02-13 08:03 | disposition home or self-care (01) ==
LOC: SPVWC 08:02
PROVIDERS: ATTEND Internal Medicine
DX: Z12.31 Encounter for screening mammogram for malignant neoplasm of breast (principal)
CPT/HCPCS: 77067

== ENCOUNTER 2019-02-14 07:57 | Outpatient (CLI) | payer OTHER ==
--- NOTE | 2019-02-14 14:19 | Mammography Report ---
BILATERAL DIGITAL SCREENING MAMMOGRAM with CAD: 02/14/19 07:57:00 CLINICAL: Routine screening. COMPARISON:02/13/18 FINDINGS: The examination was performed in the wheelchair and positioning is therefore suboptimal. She cannot raise her right arm. The breasts are almost entirely fatty. No mass, architectural distortion or suspicious calcifications. IMPRESSION: No mammographic evidence of malignancy. BI-RADS CATEGORY: 1 - - Negative RECOMMENDATION: Routine mammographic screening in one year. COMMENT: Patient follow-up letters are generated by our [employer] application.
== END 2019-02-14 07:58 | disposition home or self-care (01) ==
LOC: SPVWC 07:57
PROVIDERS: ATTEND Internal Medicine
DX: Z12.31 Encounter for screening mammogram for malignant neoplasm of breast (principal); I10 Essential (primary) hypertension; E66.9 Obesity, unspecified; K21.9 Gastro-esophageal reflux disease without esophagitis; Z90.49 Acquired absence of other specified parts of digestive tract
CPT/HCPCS: 77067

== ENCOUNTER 2020-02-19 10:10 | Outpatient (CLI) | payer OTHER ==
--- NOTE | 2020-02-19 11:37 | Mammography Report ---
DIGITAL SCREENING MAMMOGRAM WITH CAD, 02/19/2020 INDICATION: Routine screening mammography. TECHNIQUE: Digital bilateral 2D mammography was obtained in the craniocaudal and mediolateral obliq ue projections. This examination was interpreted with the benefit of Computer-Aided Detection analysi s. COMPARISON: 02/13/2018, 02/11/2017. FINDINGS: Breast Density: The breasts are almost entirely fatty. There is no evidence of dominant mass, suspicious calcifications or architectural distortion in eithe r breast. IMPRESSION: Follow up recommendation: Routine yearly BI-RADS Category 1: Negative. A "normal" or negative report should not discourage follow up or biopsy of a clinically significant f inding. A written summary of these findings will be mailed to the patient. The patient will be entered into a mammography reporting system which will generate a reminder letter for the patient's next appointmen t at the appropriate interval. The [employer] recommends yearly mammograms starting at age 40 and continuing as l oscar as a woman is in good health. Breast MRI is recommended for women with an approximate 20-25% or greater lifetime risk of breast cancer, including women with a strong family history of breast or ova haily cancer or who have been treated for Hodgkin's disease. Signer Name: Jake Jones MD Signed: 02/19/2020 11:33 AM Workstation Name: [id number]
== END 2020-02-19 10:11 | disposition home or self-care (01) ==
LOC: SPVWC 10:10
PROVIDERS: ATTEND Internal Medicine
DX: Z12.31 Encounter for screening mammogram for malignant neoplasm of breast (principal)
CPT/HCPCS: 77067

== ENCOUNTER 2021-02-19 08:29 | Outpatient (CLI) | payer OTHER ==
--- NOTE | 2021-02-19 12:41 | Mammography Report ---
DIGITAL SCREENING MAMMOGRAM WITH CAD, 02/19/2021 CLINICAL INFORMATION / INDICATION: Routine screening mammography. SCREENING MAMMO Z12.31 TECHNIQUE: Digital bilateral 2D mammography was obtained in the craniocaudal and mediolateral obliqu e projections. This examination was interpreted with the benefit of Computer-Aided Detection analysis . COMPARISON: 09/18/2012 through 02/19/2020. FINDINGS: Breast Density: The breasts are almost entirely fatty. No dominant mass, suspicious calcifications, or architectural distortion in either breast. IMPRESSION: No mammographic evidence of malignancy. Follow up recommendation: Routine yearly BI-RADS Category 1: Negative. A "normal" or negative report should not discourage follow up or biopsy of a clinically significant f inding. A written summary of these findings will be mailed to the patient. The patient will be entered into a mammography reporting system which will generate a reminder letter for the patient's next appointmen t at the appropriate interval. The [employer] recommends yearly mammograms starting at age 40 and continuing as l oscar as a woman is in good health. Breast MRI is recommended for women with an approximate 20-25% or greater lifetime risk of breast cancer, including women with a strong family history of breast or ova haily cancer or who have been treated for Hodgkin's disease. Signer Name: Aram Ann MD Signed: 02/19/2021 12:37 PM Workstation Name: [id number]
== END 2021-02-19 08:30 | disposition home or self-care (01) ==
LOC: SPVWC 08:29
PROVIDERS: ATTEND Internal Medicine
DX: Z12.31 Encounter for screening mammogram for malignant neoplasm of breast (principal)
CPT/HCPCS: 77067